=== PATIENT | male | born 1960 | race Caucasian/White ===

== ENCOUNTER 2022-03-30 09:02 | Outpatient (CLI) | payer OTHER ==
[2022-03-30] MEDS ORDERED: Magnevist 469MG/ML 20 ML VIAL ONE (12:31)
== END 2022-03-30 09:03 | disposition home or self-care (01) ==
LOC: CSHMRI 09:02
PROVIDERS: ATTEND Otolaryngology Plastic Surgery within the Head & Neck
DX: H93.A3 Pulsatile tinnitus, bilateral (principal)
CPT/HCPCS: 70544; 70549; A9579

== ENCOUNTER 2022-06-17 08:21 | Outpatient (CLI) | payer OTHER | END 2022-06-17 08:22 | disposition home or self-care (01) | LOC: CSHMRI 08:21 | PROVIDERS: ATTEND Otolaryngology Plastic Surgery within the Head & Neck | DX: H93.A3 Pulsatile tinnitus, bilateral (principal) | CPT/HCPCS: 70553 ==

== ENCOUNTER 2022-11-28 16:35 | Observation (INO) | payer OTHER ==
[2022-11-28 17:03] LABS: #Basophils 0.1 10x3/uL (0.0-0.2); #Eosinphils 0.2 10x3/uL (0.0-0.5); #Monocytes 0.7 10x3/uL (0.0-1.1); %Basophils 1.4 % (0.0-2.0); %Eosinophils 3.3 % (0.0-6.0); %Lymphocytes 14.4 % (18.0-47.0); %Neutrophils 68.7 % (40.0-75.0); Hemoglobin 15.9 g/dL (13.5-17.5); Mean Corpuscular HGB CONC 34.7 g/dL (32.0-36.0); Mean Corpuscular Hemoglobin 29.4 pg (27.0-33.0); Mean Corpuscular Volume 84.8 fl (81.2-95.1); Mean Platelet Volume 9.2 fl (7.4-10.4); Platelet Count 200 10x3/uL (150-450); RBC Distribution Width 13.2 % (11.5-14.5); White Blood Cell (WBC) Count 5.8 10x3/uL (3.5-10.5)
[2022-11-28] MEDS ORDERED: Diltiazem 125 MG/25 ML SDV ONE (17:04)
[2022-11-28 17:16] LABS: ALT (SGPT) 22 U/L (8-55); AST (SGOT) 24 U/L (5-34); Albumin 4.4 g/dL (3.4-4.8); Alkaline Phosphatase 61 U/L (40-110); Anion Gap 14 mmol/L (10-20); BUN (Urea Nitrogen) 19 mg/dL (8.4-25.7); Bilirubin, Total 0.7 mg/dL (0.2-1.2); Calc. Creatinine Clearance 0 mL/min (70-130); Calcium 9.6 mg/dL (7.8-10.44); Carbon Dioxide 25 mmol/L (23-31); Chloride 102 mmol/L (98-107); Estimated GFR 78; Globulin 2.5 g/dL (2.4-3.5); Glucose 92 mg/dL (80-115); Protein, Total 6.9 g/dL (5.8-8.1); Sodium 137 mmol/L (136-145)
[2022-11-28] MEDS ORDERED: Senokot S 8.6-50 MG TAB PO PRN (18:04)
[2022-11-28] MEDS ORDERED: Calcium Carbonate 500 MG ChewTAB PO PRN (18:04)
[2022-11-28] MEDS ORDERED: Ondansetron PF 4 MG/2 ML Vial IVP PRN (18:04)
[2022-11-28] MEDS ORDERED: Acetaminophen 325 MG TAB PO PRN (18:04)
[2022-11-28] MEDS ORDERED: Diltiazem 125 MG in Sodium Chloride 0.9% 100 ML IVPB SCH ×2 (18:15→22:15)
[2022-11-28 20:10] VITALS: BMI 25.2
[2022-11-28] MEDS: Sodium Chloride 0.9% 1,000 ML IV SCH (21:34)
[2022-11-28] MEDS: Metoprolol Tartrate 25 MG TAB PO SCH (21:35)
[2022-11-29 03:35] LABS: #Basophils 0.1 10x3/uL (0.0-0.2); #Eosinphils 0.2 10x3/uL (0.0-0.5); #Monocytes 0.7 10x3/uL (0.0-1.1); #Neutrophils 3.6 10x3/uL (1.5-8.4); %Basophils 0.9 % (0.0-2.0); %Eosinophils 3.7 % (0.0-6.0); %Lymphocytes 16.1 % (18.0-47.0); %Neutrophils 65.9 % (40.0-75.0); Mean Corpuscular HGB CONC 34.4 g/dL (32.0-36.0); Mean Corpuscular Hemoglobin 29.4 pg (27.0-33.0); Mean Corpuscular Volume 85.3 fl (81.2-95.1); Mean Platelet Volume 9.5 fl (7.4-10.4); Platelet Count 181 10x3/uL (150-450); RBC Distribution Width 13.2 % (11.5-14.5); Red Blood Cell (RBC) Count 4.77 10x6/uL (4.32-5.72); White Blood Cell (WBC) Count 5.4 10x3/uL (3.5-10.5)
[2022-11-29 03:48] LABS: ALT (SGPT) 19 U/L (8-55); AST (SGOT) 21 U/L (5-34); Albumin 3.6 g/dL (3.4-4.8); Alkaline Phosphatase 52 U/L (40-110); Anion Gap 12 mmol/L (10-20); BUN (Urea Nitrogen) 18 mg/dL (8.4-25.7); Bilirubin, Total 0.4 mg/dL (0.2-1.2); Calc. Creatinine Clearance 100 mL/min (70-130); Calcium 8.7 mg/dL (7.8-10.44); Carbon Dioxide 26 mmol/L (23-31); Chloride 105 mmol/L (98-107); Estimated GFR 83; Globulin 2.1 g/dL (2.4-3.5); Glucose 102 mg/dL (80-115); Magnesium 1.8 mg/dL (1.6-2.6); Potassium 4.3 mmol/L (3.5-5.1); Protein, Total 5.7 g/dL (5.8-8.1); Sodium 139 mmol/L (136-145)
[2022-11-29] MEDS: Sodium Chloride 0.9% 1,000 ML IV SCH (05:54)
[2022-11-29] MEDS ORDERED: Levothyroxine Sodium 125 MCG TAB PO SCH (06:00)
[2022-11-29] MEDS ORDERED: Apixaban 5 MG TAB PO SCH (09:00)
[2022-11-29] MEDS: Metoprolol Tartrate 25 MG TAB PO SCH (09:46)
[2022-11-29 12:09] VITALS: BP 106/69; TEMP 98.2
[2022-11-30] MEDS ORDERED: Aspirin 325 mg Enteric Coated Tablet PO SCH (09:00)
== END 2022-11-29 12:18 | disposition home or self-care (01) ==
LOC: SUATTDRO 16:35 → CSHERS 16:35 → CSHTELE 18:41
PROVIDERS: ADMIT Internal Medicine; ATTEND Internal Medicine
DX: I48.0 Paroxysmal atrial fibrillation (principal); I48.92 Unspecified atrial flutter; I10 Essential (primary) hypertension; E03.9 Hypothyroidism, unspecified; I34.0 Nonrheumatic mitral (valve) insufficiency; Z79.01 Long term (current) use of anticoagulants; Z79.890 Hormone replacement therapy; Z79.899 Other long term (current) drug therapy
CPT/HCPCS: 36415; 71045; 80053; 83735; 84443; 84484; 85025; 93005; 93306; 94760; 96365; 96366; 96372; 96376; G0378; J1650; J7050

== ENCOUNTER 2023-06-01 22:00 | Observation (INO) | payer OTHER ==
[2023-06-01] MEDS ORDERED: Metoprolol Tartrate 5 MG/5 ML VIAL ONE (22:34)
[2023-06-01 22:39] LABS: #Basophils 0.1 10x3/uL (0.0-0.2); #Eosinphils 0.3 10x3/uL (0.0-0.5); #Monocytes 0.6 10x3/uL (0.0-1.1); #Neutrophils 3.3 10x3/uL (1.5-8.4); %Basophils 1.3 % (0.0-2.0); %Eosinophils 5.2 % (0.0-6.0); %Lymphocytes 28.5 % (18.0-47.0); %Neutrophils 54.7 % (40.0-75.0); Hematocrit 45.4 % (38.8-50.0); Hemoglobin 15.8 g/dL (13.5-17.5); Mean Corpuscular HGB CONC 34.8 g/dL (32.0-36.0); Mean Corpuscular Hemoglobin 29.2 pg (27.0-33.0); Mean Corpuscular Volume 83.9 fl (81.2-95.1); Mean Platelet Volume 8.9 fl (7.4-10.4); Platelet Count 203 10x3/uL (150-450); RBC Distribution Width 12.5 % (11.5-14.5); Red Blood Cell (RBC) Count 5.41 10x6/uL (4.32-5.72)
[2023-06-01 22:54] LABS: ALT (SGPT) 18 U/L (8-55); AST (SGOT) 17 U/L (5-34); Albumin 4.4 g/dL (3.4-4.8); Alkaline Phosphatase 74 U/L (40-110); Anion Gap 16 mmol/L (10-20); BUN (Urea Nitrogen) 20 mg/dL (8.4-25.7); Bilirubin, Total 0.5 mg/dL (0.2-1.2); Calc. Creatinine Clearance 0 mL/min (70-130); Calcium 9.7 mg/dL (7.8-10.44); Carbon Dioxide 24 mmol/L (23-31); Chloride 102 mmol/L (98-107); Estimated GFR 73; Globulin 2.8 g/dL (2.4-3.5); Glucose 101 mg/dL (80-115); Magnesium 1.9 mg/dL (1.6-2.6); Potassium 3.9 mmol/L (3.5-5.1); Protein, Total 7.2 g/dL (5.8-8.1); Sodium 138 mmol/L (136-145)
[2023-06-01 22:55] LABS: Troponin I 0.153 ng/mL (< 0.028)
[2023-06-01] MEDS ORDERED: Propafenone HCl 150 MG TAB PO SCH (23:45)
[2023-06-02] MEDS ORDERED: Metoprolol Tartrate 5 MG/5 ML VIAL ONE (00:24)
[2023-06-02] MEDS ORDERED: Calcium Carbonate 500 MG ChewTAB PO PRN (01:04)
[2023-06-02] MEDS ORDERED: Acetaminophen 325 MG TAB PO PRN (01:04)
[2023-06-02] MEDS ORDERED: Ondansetron PF 4 MG/2 ML Vial IVP PRN (01:04)
[2023-06-02] MEDS ORDERED: Zolpidem Tartrate 5 MG TAB PO PRN (01:04)
[2023-06-02 01:05] LABS: Troponin I 0.141 ng/mL (< 0.028)
[2023-06-02] MEDS ORDERED: Magnesium Sulfate/D5W 1 GM/100 ML BAG IVPB SCH (01:15)
[2023-06-02] MEDS ORDERED: Amiodarone In Dextrose 360 MG in Premix 1 BAG IVPB SCH (01:15)
[2023-06-02] MEDS ORDERED: Potassium Chloride 20 MEQ TAB PO SCH (01:15)
[2023-06-02] MEDS ORDERED: Amiodarone 150 MG/3 ML VIAL ONE (01:19)
[2023-06-02] MEDS ORDERED: Amiodarone In Dextrose 200 ML ONE (01:19)
[2023-06-02 03:02] VITALS: BMI 24.6
[2023-06-02 05:30] LABS: Anion Gap 13 mmol/L (10-20); BUN (Urea Nitrogen) 15 mg/dL (8.4-25.7); Calc. Creatinine Clearance 117 mL/min (70-130); Calcium 9.2 mg/dL (7.8-10.44); Carbon Dioxide 22 mmol/L (23-31); Chloride 108 mmol/L (98-107); Estimated GFR 97; Glucose 109 mg/dL (80-115); Potassium 4.2 mmol/L (3.5-5.1); Sodium 139 mmol/L (136-145)
[2023-06-02 05:53] LABS: Free T4 (Free Thyroxine) 1.91 ng/dL (0.70-1.48); Thyroid Stimulating Hormone 0.5298 uIU/mL (0.35-4.94)
[2023-06-02] MEDS ORDERED: Levothyroxine Sodium 112 MCG TAB PO SCH (06:00)
[2023-06-02] MEDS ORDERED: Apixaban 5 MG TAB PO SCH (09:00)
[2023-06-02 13:03] VITALS: BP 106/74; TEMP 97.7
== END 2023-06-02 14:01 | disposition home or self-care (01) ==
LOC: CSHERS 22:00 → CSHTELE 06-02 01:49
PROVIDERS: ADMIT Student in an Organized Health Care Education/Training Program; ATTEND Hospitalist
DX: R00.2 Palpitations (principal); I48.3 Typical atrial flutter; I48.0 Paroxysmal atrial fibrillation; G51.0 Bell's palsy; I50.32 Chronic diastolic (congestive) heart failure; E03.9 Hypothyroidism, unspecified; Z79.890 Hormone replacement therapy; Z79.01 Long term (current) use of anticoagulants; Z92.89 Personal history of other medical treatment; Z98.890 Other specified postprocedural states; Z79.899 Other long term (current) drug therapy
CPT/HCPCS: 36415; 71045; 80048; 80053; 83735; 84439; 84443; 84484; 85025; 93005; 93010; 96375; 96376; G0378; J0282; J0283; J3475